=== PATIENT | male | born 1960 | race Caucasian/White ===

== ENCOUNTER 2017-10-15 10:43 | Emergency (ER) | payer OTHER ==
[~2017-10-15] VITALS: Ht 177.8 cm; Wt 117.9 kg
[2017-10-15 11:14] VITALS: BP 153/91
[2017-10-15] MEDS ORDERED: TETANUS-DIPTH-ACEL PERTUSSIS 0.5ML SYRG IM ONE (11:30)
[2017-10-15] MEDS ORDERED: LIDOCAINE 1% HCL (LOCAL ANESTH.) INJ 20ML MDV IJ ONE (12:15)
[2017-10-15] MEDS ORDERED: NEOMYCIN-BACITRACIN-POLYM UNITDOSE PKG TOP OINT TOP ONE (12:15)
== END 2017-10-15 12:15 | disposition home or self-care (01) ==
LOC: ER 10:43
DX: S68.121A Partial traumatic metacarpophalangeal amputation of left index finger, initial encounter (principal); S61.311A Laceration without foreign body of left index finger with damage to nail, initial encounter; Z23 Encounter for immunization; W45.8XXA Other foreign body or object entering through skin, initial encounter; Y93.89 Activity, other specified; Y92.89 Other specified places as the place of occurrence of the external cause; Y99.8 Other external cause status
CPT/HCPCS: 12001; 73140; 90471; 90715; 99284; J2001